=== PATIENT | female | born 1980 ===

== ENCOUNTER 2017-11-08 14:30 | Outpatient (CLI) | payer OTHER ==
--- NOTE | 2017-11-08 15:41 | ULT ---
LEFT LOWER EXTREMITY VENOUS ULTRASOUND: COMPARISON: None. HISTORY: Left lower extremity pain for 3 days, particularly in the posterior thigh and popliteal region. TECHNIQUE: Multiplanar, hamlin scale, and color Doppler images were obtained in a left lower extremity venous ultr asound. Spectral analysis of the Doppler waveforms was performed. FINDINGS: The left common femoral vein, profunda femoral vein, superficial femoral vein, and popliteal vein are normal in appearance without visible thrombus. These vessels demonstrate normal compression, flow, and augmentation. The posterior tibial vein and greater saphenous vein are also patent. IMPRESSION: No evidence of deep vein thrombosis. POS: [facility]
== END 2017-11-08 14:31 | disposition home or self-care (01) ==
LOC: SCSULT 14:30 → ULT 14:31
PROVIDERS: ATTEND Family Medicine
DX: M79.605 Pain in left leg (principal)